=== PATIENT | male | born 1945 | race African-American/Black ===

== ENCOUNTER 2016-05-06 09:15 | Outpatient (CLI) | payer MEDICARE ==
[2016-05-06 09:38] LABS: #Basophils 0.1 thou/uL (0.0-0.2); #Lymphocytes 2.3 thou/uL (1.20-3.40); #Monocytes 0.9 thou/uL (0.11-0.59); #Neutrophils 5.1 thou/uL (1.40-6.50); %Basophils 0.9 % (0.0-1.0); %Monocytes 10.8 % (0.0-10.0); %Neutrophils 60.3 % (42.0-75.0); Hemoglobin 13.2 g/dL (14.0-18.0); Mean Corpuscular HGB CONC 32.5 g/dL (32.0-36.0); Mean Corpuscular Hemoglobin 29.5 pg (27.0-31.0); Mean Corpuscular Volume 90.8 fl (80.0-94.0); Mean Platelet Volume 8.1 fL (7.4-10.4); Platelet Count 219 thou/uL (130-400); RBC Distribution Width 12.8 % (11.5-14.5); Red Blood Cell (RBC) Count 4.48 mill/uL (4.70-6.10); White Blood Cell (WBC) Count 8.4 thou/uL (4.8-10.8)
[2016-05-06 09:44] LABS: Hemoglobin A1c 6.6 % (4.0-6.0)
[2016-05-06 10:05] LABS: ALT (SGPT) 33 U/L (0-55); AST (SGOT) 27 U/L (5-34); Alkaline Phosphatase 79 U/L (40-150); Anion Gap 16 mmol/L (10-20); BUN (Urea Nitrogen) 17 mg/dL (8.4-25.7); Bilirubin, Direct 0.2 mg/dL (0.1-0.3); Bilirubin, Total 0.5 mg/dL (0.2-1.2); Calc. Creatinine Clearance 0 mL/min (70-130); Calcium 9.6 mg/dL (7.8-10.44); Carbon Dioxide 24 mmol/L (23-31); Cardiac Risk 1.9 (Less than 4.5); Chloride 106 mmol/L (98-107); Cholesterol 177 mg/dL (< 200 Desired); Estimated GFR-MDRD 83; Glucose 115 mg/dL (83-110); HDL Cholesterol 94 mg/dL (>60 Neg Risk); LDL Cholesterol, Calculated 66 mg/dL; Potassium 3.9 mmol/L (3.5-5.1); Protein, Total 6.8 g/dL (5.8-8.1); Sodium 142 mmol/L (136-145); Triglycerides 85 mg/dL (Less than 150)
[2016-05-06 19:18] LABS: Creatinine, Urine 182.06 mg/dL (63-166); Microalbumin Urine 8.6 mg/dL (0.5-50.0); Microalbumin/Creat Ratio 47.2 mg/g (Less than 30)
== END 2016-05-06 09:16 | disposition home or self-care (01) ==
LOC: MADLABBHPM 09:15
PROVIDERS: ATTEND Family Medicine
DX: E78.5 Hyperlipidemia, unspecified (principal); E11.9 Type 2 diabetes mellitus without complications; D50.9 Iron deficiency anemia, unspecified
CPT/HCPCS: 36415; 80048; 80061; 80076; 82043; 83036; 84443; 85025

== ENCOUNTER 2016-07-26 09:31 | Outpatient (CLI) | payer MEDICARE ==
[~2016-07-26 09:31] MED LIST: Iopamidol 370 76% 100 ML VIAL ONE
--- NOTE | 2016-07-26 15:03 | CT ---
CT CHEST WITH CONTRAST: Date: 07/26/16 HISTORY: Lung cancer. COMPARISON: CT chest dated 04/08/16. FINDINGS: The confluent nodular opacity in the right upper lobe is at the vertex and is increased in size from the comparison examination measuring 2.1 x 5.6 x 2.5 cm, previously 0.9 x 3.7 cm. There is adjacent soft tissue nodularity along the major fissure, which has also increased in size, now measuring 2.5 x 1.2 cm, previously 2.3 x 1.2 cm. Another area of soft tissue nodularity is similar in size measur ing 1.4 x 3.9 cm, previously 1.6 x 3.9 cm. Right lower lobe nodules have increased in size. The dominant right lower lobe nodule measures 1.9 x 2.0 5.3 cm, previously 1.7 x 1.7 x 4.9 cm. Also within the right lung base is a soft tissue mass me asuring 5.7 x 2.0 x 2.7 cm, previously 2.4 x 4.3 x 3.7 cm. The right perihilar lymph nodes 2.1 x 3.9 x 4.3 cm, previously 1.6 x 3.5 x 3.1 cm. The peripheral pleural studding of nodules has progressed along the right hemithorax. In the anterior segment left upper lobe is a 0.6 x 0.4 x 0.3 cm nodule, which is more apparent than on the prior examination. There is volume loss and postsurgical change in the right hemithorax. Numerous calcified granulomas of the spleen and liver. Common bile duct is unremarkable. Aortic contour is normal. There are AP window lymph nodes, which are similar. Right paratracheal lym ph nodes are similar. There is unchanged erosion of the posterior right fifth rib and sixth ribs, and could be postsurgica l in nature. IMPRESSION: Findings indicative of worsening metastatic disease of the chest with index lesions as described abo ve. POS: BELLA
== END 2016-07-26 09:32 | disposition home or self-care (01) ==
LOC: MADCT 09:31
PROVIDERS: ATTEND Internal Medicine Hematology & Oncology
DX: C34.81 Malignant neoplasm of overlapping sites of right bronchus and lung (principal); C79.89 Secondary malignant neoplasm of other specified sites; E53.9 Vitamin B deficiency, unspecified; R11.2 Nausea with vomiting, unspecified
CPT/HCPCS: 36415; 71260; 82565

== ENCOUNTER 2016-09-24 07:50 | Outpatient (CLI) | payer MEDICARE ==
[2016-09-24 08:29] LABS: #Basophils 0.1 thou/uL (0.0-0.2); #Eosinphils 0.2 thou/uL (0.0-0.7); #Lymphocytes 2.2 thou/uL (1.20-3.40); #Monocytes 0.9 thou/uL (0.11-0.59); #Neutrophils 3.1 thou/uL (1.40-6.50); %Basophils 2.1 % (0.0-1.0); %Eosinophils 3.2 % (0.0-10.0); %Lymphocytes 34.1 % (21.0-51.0); %Neutrophils 47.5 % (42.0-75.0); Hemoglobin 13.5 g/dL (14.0-18.0); Mean Corpuscular HGB CONC 31.8 g/dL (32.0-36.0); Mean Corpuscular Hemoglobin 27.8 pg (27.0-31.0); Mean Corpuscular Volume 87.3 fl (80.0-94.0); Mean Platelet Volume 8.3 fL (7.4-10.4); Platelet Count 176 thou/uL (130-400); RBC Distribution Width 13.5 % (11.5-14.5); Red Blood Cell (RBC) Count 4.85 mill/uL (4.70-6.10); White Blood Cell (WBC) Count 6.5 thou/uL (4.8-10.8)
[2016-09-24 08:35] LABS: Hemoglobin A1c 6.7 % (4.0-6.0)
[2016-09-24 08:51] LABS: ALT (SGPT) 16 U/L (8-55); AST (SGOT) 18 U/L (5-34); Albumin 3.8 g/dL (3.4-4.8); Alkaline Phosphatase 89 U/L (40-150); Anion Gap 16 mmol/L (10-20); BUN (Urea Nitrogen) 15 mg/dL (8.4-25.7); Bilirubin, Direct 0.2 mg/dL (0.1-0.3); Bilirubin, Total 0.3 mg/dL (0.2-1.2); Calc. Creatinine Clearance 0 mL/min (70-130); Calcium 9.5 mg/dL (7.8-10.44); Carbon Dioxide 21 mmol/L (23-31); Cardiac Risk 2.2 (Less than 4.5); Chloride 106 mmol/L (98-107); Cholesterol 145 mg/dl (< 200 Desired); Estimated GFR-MDRD 85; Glucose 120 mg/dL (83-110); HDL Cholesterol 65 mg/dL (>60 Neg Risk); LDL Cholesterol, Calculated 66 mg/dL; Potassium 4.2 mmol/L (3.5-5.1); Protein, Total 7.3 g/dL (5.8-8.1); Sodium 139 mmol/L (136-145); Triglycerides 69 mg/dL (Less than 150)
== END 2016-09-24 07:51 ==
LOC: MADLABBHPM 07:50
PROVIDERS: ATTEND Family Medicine
DX: D50.9 Iron deficiency anemia, unspecified (principal); E11.9 Type 2 diabetes mellitus without complications
CPT/HCPCS: 36415; 80048; 80061; 80076; 83036; 85025